=== PATIENT | male | born 1980 | race Caucasian/White ===

== ENCOUNTER 2021-05-25 08:31 | Emergency (ER) | payer SELFPAY ==
[~2021-05-25] VITALS: Ht 182.8 cm; Wt 74.8 kg
[2021-05-25] MEDS ORDERED: LISINOPRIL20 MG PO (08:47)
[2021-05-25 11:31] LABS: BASO % 0.3 % (0.0-1.0); EOS # 0.2 10*3/uL (0.0-0.4); EOS % 1.8 % (1.0-4.0); HEMATOCRIT 42.3 % (42.0-52.0); LYMPH # 1.9 10*3/uL (1.3-4.4); LYMPH % 17.4 % (27.0-41.0); MEAN CELL VOLUME 97.2 fl (80.0-94.0); MEAN CORPUSCULAR HGB CONC 32.9 g/dl (33.0-37.0); MEAN PLATELET VOLUME 11.1 fl (9.6-12.3); MONO # 0.8 10*3/uL (0.1-1.0); MONO % 7.2 % (3.0-9.0); NEUT # 7.8 10*3/uL (2.3-7.9); NEUT % 73.1 % (47.0-73.0); PLATELET COUNT AUTOMATED 297 10*3/uL (130-400); RED BLOOD COUNT 4.35 10*6/uL (4.50-5.90); RED CELL DISTRI WIDTH 11.6 % (0-14.5); WHITE BLOOD COUNT 10.6 10*3/uL (4.8-10.8)
[2021-05-25 11:45] LABS: ALBUMIN 3.5 gm/dl (3.1-4.5); ALKALINE PHOSPHATASE 96 U/L (45-117); BUN 4 mg/dl (7-24); CHLORIDE 109 mmol/L (98-107); CREATININE 0.84 mg/dL (0.70-1.30); POTASSIUM 4.6 mmol/L (3.5-5.1); SGOT/AST 13 IU/L (3-35); SGPT/ALT 26 U/L (12-78); SODIUM 142 mmol/L (136-145); TOTAL PROTEIN 7.4 gm/dL (6.4-8.2)
[2021-05-25] MEDS ORDERED: HYDROCODONE-AC1 EAC1 PO (12:17)
== END 2021-05-25 12:22 | disposition home or self-care (01) ==
LOC: ED 08:31 → EDBD 08:34 → ED 12:22
PROVIDERS: Internal Medicine
DX: K02.9 Dental caries, unspecified (principal); Z79.899 Other long term (current) drug therapy

== ENCOUNTER 2024-11-01 07:22 | Emergency (ER) | payer BC ==
[~2024-11-01] VITALS: Ht 182.8 cm; Wt 68.3 kg
[~2024-11-01 07:22] MED LIST: HYDROCODONE-AC1 EAC1 PO; LISINOPRIL20 MG PO
[2024-11-01] MEDS ORDERED: ROSUVASTATIN CA40 MG PO (07:48)
[2024-11-01 08:18] LABS: BASO % 0.3 % (0.0-1.0); HEMATOCRIT 42.4 % (42.0-52.0); MEAN CELL VOLUME 96.1 fl (80.0-94.0); MEAN CORPUSCULAR HGB 31.5 pg (27.0-31.0); MEAN CORPUSCULAR HGB CONC 32.8 g/dl (33.0-37.0); MEAN PLATELET VOLUME 11.5 fl (9.6-12.3); MONO # 0.6 10*3/uL (0.1-1.0); MONO % 7.4 % (3.0-9.0); NEUT # 5.5 10*3/uL (2.3-7.9); NEUT % 70.2 % (47.0-73.0); PLATELET COUNT AUTOMATED 157 10*3/uL (130-400); RED BLOOD COUNT 4.41 10*6/uL (4.50-5.90); RED CELL DISTRI WIDTH 12.7 % (0-14.5); WHITE BLOOD COUNT 7.9 10*3/uL (4.8-10.8)
[2024-11-01 08:41] LABS: BUN 10 mg/dl (9-23); CHLORIDE 106 mmol/L (98-107); POTASSIUM 3.8 mmol/L (3.4-5.1)
[2024-11-01] MEDS ORDERED: TRAMADOL HCL50 MG PO (10:25)
[2024-11-01] MEDS ORDERED: VIBRAMYCIN100 MG PO (10:25)
[2024-11-01] MEDS ORDERED: CEPHALEXIN500 M1 PO (10:25)
== END 2024-11-01 10:26 | disposition home or self-care (01) ==
LOC: ED 07:22
PROVIDERS: Emergency Medicine
DX: L03.011 Cellulitis of right finger (principal); Z88.6 Allergy status to analgesic agent; Z79.899 Other long term (current) drug therapy